=== PATIENT | male | born 1970 | race Caucasian/White ===

== ENCOUNTER → 2016-07-28 | Outpatient (CLI) | payer OTHER, BC ==
[2016-07-28 12:40] LABS: Basophils % (A) 0 %; CH 25.3; CHCM 31.1; Eosinophils # (A) 0.1 k/uL (0-0.7); Eosinophils % (A) 1 %; HCT 37.2 % (39.0-53.0); HDW 2.73; HGB 11.6 gm/dL (13.0-17.5); Hypochromasia Slight; Luc % (Auto) 2; Lymphocytes # (A) 1.7 k/uL (1.0-4.8); Lymphocytes % (A) 13 %; MCH 25.4 pg (25.0-35.0); MCHC 31.1 g/dL (31.0-37.0); MCV 81.6 fL (80.0-100.0); Mean Platelet Volume 6.5; Monocytes % (A) 8 %; Neutrophils # (A) 9.3 k/uL (1.3-7.7); Neutrophils % (A) 75 %; RBC 4.56 m/uL (4.30-5.90); RDW 13.2 % (11.5-15.5); WBC 12.4 k/uL (3.8-10.6); WBC (Perox) 13.36
[2016-07-28 13:08] LABS: ALT 42 U/L (21-72); AST 20 U/L (17-59); Alkaline Phosphatase 113 U/L (38-126); Anion Gap 14 mmol/L; Blood Urea Nitrogen 12 mg/dL (9-20); Calcium 9.7 mg/dL (8.4-10.2); Carbon Dioxide 26 mmol/L (22-30); Chloride 104 mmol/L (98-107); Glucose 118 mg/dL (74-99); LDH 413 U/L (313-618); Non-African American GFR(MDRD) >60 (>60 ml/min/1.73 sqM); Potassium 5.3 mmol/L (3.5-5.1); Sodium 144 mmol/L (137-145); Total Bilirubin 0.4 mg/dL (0.2-1.3); Total Protein 7.2 g/dL (6.3-8.2)
[2016-07-28 13:39] LABS: Prostate Specific Antigen 1.37 ng/mL (0.00-4.00)
[2016-07-30 20:12] LABS: Manual Review Performed; Nucleated Red Blood Cells 0 /100 WBC (0-0); Total Cells Counted 100
[2016-07-30 20:13] LABS: RBC Morphology Normal
== END | disposition home or self-care (01) ==
LOC: LABWHC1 11:42
PROVIDERS: ATTEND Family Medicine
DX: R59.0 Localized enlarged lymph nodes (principal)
CPT/HCPCS: 36415; 71020; 80053; 83615; 84153; 84402; 84403; 84443; 85025

== ENCOUNTER → 2016-07-28 | Outpatient (CLI) | payer BC, OTHER ==
--- NOTE | 2016-07-28 13:19 | XR ---
EXAMINATION TYPE: XR chest 2V DATE OF EXAM: 07/28/2016 1:05 PM COMPARISON: NONE HISTORY: Supraclavicular adenopathy TECHNIQUE: Frontal and lateral views of the chest are obtained. FINDINGS: There is no focal air space opacity, pleural effusion, or pneumothorax seen. Prominence i n the right hilum may reflect underlying adenopathy. There is also prominence of the paratracheal str ipe which may reflect additional adenopathy. The cardiac silhouette size is within normal limits. T he osseous structures are intact. IMPRESSION: Suspect mediastinal and hilar adenopathy. CT of the chest is advised.
== END | disposition home or self-care (01) ==
LOC: RADXRMAIN 12:50
PROVIDERS: ATTEND Family Medicine
DX: R59.0 Localized enlarged lymph nodes (principal)
CPT/HCPCS: 71020

== ENCOUNTER → 2016-07-30 | Outpatient (CLI) | payer OTHER, BC ==
--- NOTE | 2016-07-30 09:38 | CT ---
EXAMINATION TYPE: CT soft tissue neck w con DATE OF EXAM: 07/30/2016 9:18 AM HISTORY: Localized swelling, mass or lump in left side of neck COMPARISON: NONE CT DLP: 474.80 mGycm. Automated Exposure Control for Dose Reduction was Utilized. TECHNIQUE: CT scan of the neck is performed with IV Contrast, patient injected with 100 ml mL of Omn ipaque 300, axial images are obtained, coronal and sagittal reformatted images are reviewed. FINDINGS: A vitamin E marker is placed at level of palpable abnormality left neck inferior hyoid leve l on axial image 39. There is prominent left-sided neck adenopathy present at as well as above and be low this level. Prominent but subcentimeter lymph nodes are seen in the posterior cervical triangle a nd bilateral carotid spaces as well as submandibular levels. There is abnormal adenopathy at hyoid dillan ne level lateral to SCM, largest lymph node measures 1.1 x 1.0 cm on axial image 42. Just below this at level of vocal cords laterally there is abnormal lymph node measuring 1.5 x 1.1 cm on axial image 38. There are additional abnormal lymph nodes extending to the supraclavicular region with largest at level of thyroid gland measuring approximately 1.7 x 1.3 cm chest anterior and superior to the subcl marilia vessels and lateral to the jugular vein and common carotid artery on axial image 22. Mild surro unding fat stranding is present at this level. There is abnormal lymph node anterior superior mediast inum measuring 1.4 x 1.8 cm adjacent to the proximal trachea on axial image 12. Airway: No gross abnormality seen. Parotid/submandibular glands: No gross abnormality seen. Carotid/Vascular Structures: Mild plaque at left carotid bulb is present. Osseous Structures: There is loss of normal cervical curvature. There is suspicious sclerosis involvi ng the T2 vertebra fairly diffusely. Additional sclerotic focus involving the C3 spinous process exte nding into the right C3 lamina. Other: Mild mucosal thickening anteriorly left inferior maxillary sinus is present. IMPRESSION: Abnormal adenopathy in the left neck involving zones 2 through 4 with mild soft tissue sw elling and fat stranding, there is abnormal right sided anterior superior mediastinal lymph node bord brayden zone 6/7 also present. Differential includes infectious or inflammatory etiologies versus neop lasm. The presence of a zone 6/7 lymph node with some suspicious sclerotic bone lesions particularly at T2 vertebral body level makes neoplasm favored. Consider further investigation with PET/CT and pos sibly whole body bone scan. Oncology follow-up advised.
== END | disposition home or self-care (01) ==
LOC: RADCTMAIN 08:42
PROVIDERS: ATTEND Family Medicine
DX: R59.0 Localized enlarged lymph nodes (principal)
CPT/HCPCS: 70491; Q9967

== ENCOUNTER → 2016-08-13 | Outpatient (CLI) | payer OTHER, BC ==
--- NOTE | 2016-08-13 09:16 | CT ---
EXAMINATION TYPE: CT ChestAbdPelvis w con DATE OF EXAM: 08/13/2016 8:36 AM COMPARISON: NONE HISTORY: Patient complains of swollen neck lymph nodes and abnormal Neck CT. CT DLP: 2054 mGycm CONTRAST: CT scan of the chest, abdomen and pelvis is performed with Oral Contrast and with IV Contrast, patien t injected with 100 mL of Omnipaque 300. CT Chest: LUNGS: Irregular elongated nodule right middle lobe lateral segment measuring 2.1 x 1.3 cm. No additi onal nodules or masses identified. The lungs are otherwise clear. No pleural effusion or CT evidence of interstitial lung disease. MEDIASTINUM: Anterior mediastinal mass to the right of midline measuring 5.9 x 5.0 cm may reflect co nglomerate adenopathy although thymic tumors not excluded. AP window adenopathy measuring up to 1.3 c m in left paratracheal adenopathy measuring up to 1.2 cm. Small subcentimeter lymph nodes seen within the prevascular space as well as the low right paratracheal region. High right paratracheal lymph no de measuring 1.6 cm. Thoracic aorta is of normal caliber. The heart is not enlarged. HILAR STRUCTURES: No evidence for mass. No adenopathy greater than 1 cm. OTHER: Supraclavicular adenopathy identified on the left measuring up to 1.1 cm. Normal-appearing axi llary lymph nodes. CONTRAST CT ABDOMEN AND PELVIS FINDINGS: LIVER/GB: Tiny gallstone noted. One or 2 tiny cysts are subcentimeter in size within the liver. Bilia ry tree is of normal caliber. PANCREAS: No inflammation. No distinct mass. SPLEEN: No splenic enlargement. No lesion seen. ADRENALS: No nodule. No thickening. KIDNEYS/BLADDER: No hydronephrosis. No nephrolithiasis. Simple cyst lower pole left kidney measurin g 1.5 cm. BOWEL: Normal appendix. Normal bowel caliber. No inflammation. GENITAL ORGANS: No gross abnormality. LYMPH NODES: Right common iliac adenopathy measuring 1.4 cm. Right external iliac chain adenopathy me asuring 1.2 cm as well as 1.7 cm. Right inguinal adenopathy measuring 1.2 cm. Additional right inguin al lymph node measuring 1.3 cm. No left inguinal adenopathy appreciated at this time. AORTA: No signi ficant abnormality. OSSEOUS STRUCTURES: Sclerosis of the T2 segment noted. There is also vague sclerosis of the inferior pubic ramus on the right. L5 bilateral spondylolysis. OTHER: No significant additional abnormality is seen. IMPRESSION: 1. Anterior mediastinal mass may reflect conglomerate adenopathy although mass of thymic origin is no t excluded. Additional mediastinal and left supraclavicular as well as iliac chain and inguinal adeno domonique as discussed. 2. Elongate nodule within the lateral segment of the right middle lobe may reflect primary malignancy versus solitary metastatic lesion. 3. Bony metastatic lesion suspected at T2 as well as inferior right pubic ramus.
== END | disposition home or self-care (01) ==
LOC: RADCTMAIN 06:33
PROVIDERS: ATTEND Internal Medicine Hematology & Oncology
DX: J98.59 Other diseases of mediastinum, not elsewhere classified (principal); R91.1 Solitary pulmonary nodule
CPT/HCPCS: 71260; 74177; Q9967

== ENCOUNTER → 2016-09-06 | Outpatient (CLI) | payer OTHER, BC | END | disposition home or self-care (01) | LOC: CPPFTMAIN 13:23 | PROVIDERS: ATTEND Internal Medicine Hematology & Oncology | DX: Z01.818 Encounter for other preprocedural examination (principal); C81.90 Hodgkin lymphoma, unspecified, unspecified site | CPT/HCPCS: 94060; 94726; 94729 ==

== ENCOUNTER → 2016-12-01 | Outpatient (CLI) | payer OTHER, BC ==
--- NOTE | 2016-12-01 13:00 | PE ---
EXAMINATION TYPE: PET CT fusion whole body DATE OF EXAM: 12/01/2016 CLINICAL HISTORY: Hodgkin lymphoma progress study. Initial location left neck completed chemotherapy November 2016. TECHNIQUE: Following the intravenous administration of 14.059 mCi of F-18 FDG, whole body images ar e performed from the skull base to the midthigh. Images are reviewed on the computer in the coronal, axial, and sagittal planes. Reconstructed rotating images are created on independent workstation an d reviewed on the computer. A non-contrast CT is performed in conjunction with the PET scan. COMPARISON: CT neck July 30, 2016. CT cap August 13, 2016. FINDINGS: SKULL BASE AND NECK: No suspicious hypermetabolic uptake is seen in the neck on current study. Scat tered subcentimeter lymph nodes are present. No suspicious greater than 1 cm neck adenopathy persists after treatment. There is marked interval improvement in left-sided supraclavicular adenopathy which is now subcentimeter in size. CHEST, MEDIASTINUM, AND HILAR REGION: No suspicious hypermetabolic uptake is seen in the thorax. Barry ed interval improvement in superior mediastinal adenopathy is seen. For reference high right paratrac heal lymph node measures 10 x 5 mm on current study versus 18 x 16 mm on prior study. Lobulated anter ior mediastinal mass measures 4.5 x 2.1 cm on current study axial image 116 versus 5.9 x 4.3 cm on pr ior study axial image 31. ABDOMEN AND PELVIS: No suspicious hypermetabolic uptake is seen in the abdomen or pelvis. Normal excr etion is present. OSSEOUS STRUCTURES: No suspicious hypermetabolic uptake is seen in osseous structures. There is stabl e sclerosis T2 vertebra. There is stable more mild sclerosis right ischial tuberosity. OTHER CT: Nasal septum is deviated to right of midline. There is right internal jugular Mediport catheter with tip in SVC. There are small degree of bilateral gynecomastia. Prostate gland is prominent in size with central zone calcifications, underlying BPH is suspected, cl inical correlation advised. IMPRESSION: Marked interval improvement in neck and thoracic adenopathy without abnormal hypermetabol ic uptake currently. All lymph nodes and masses diminished in size. Stable nonspecific sclerosis T2 l esions without abnormal hypermetabolic uptake. EORTC response criteria: Complete Metabolic Response. MaxSUV < 2.5 or equivalent to background
== END | disposition home or self-care (01) ==
LOC: RADPETMAIN 08:12
PROVIDERS: ATTEND Internal Medicine Hematology & Oncology
DX: C81.90 Hodgkin lymphoma, unspecified, unspecified site (principal); R59.0 Localized enlarged lymph nodes; M89.8X8 Other specified disorders of bone, other site
CPT/HCPCS: 78816; A9552

== ENCOUNTER → 2017-01-17 | Outpatient (CLI) | payer OTHER, BC ==
[2017-01-17 14:30] LABS: Blood Urea Nitrogen 12 mg/dL (9-20); Non-African American GFR(MDRD) >60 (>60 ml/min/1.73 sqM)
--- NOTE | 2017-01-17 14:56 | US ---
EXAMINATION TYPE: US venous doppler duplex LE DATE OF EXAM: 01/17/2017 2:36 PM COMPARISON: NONE CLINICAL HISTORY: M79.662 pain left lower limb R22.41 swelling rl limb. Bilateral feet swelling x 1 w [place] SIDE PERFORMED: Bilateral TECHNIQUE: The lower extremity deep venous system is examined utilizing real time linear array sonog saran with graded compression, doppler sonography and color-flow sonography. VESSELS IMAGED: External Iliac Vein (EIV) Common Femoral Vein Deep Femoral Vein Greater Saphenous Vein * Femoral Vein Popliteal Vein Small Saphenous Vein * Proximal Calf Veins (* superficial vessels) Grayscale, color doppler, spectral doppler imaging performed of the deep veins of the lower extremit ies. There is normal flow, compressibility, vascular waveforms bilaterally. Right Leg: Appears negative for DVT Left Leg: Appears negative for DVT IMPRESSION: Negative
--- NOTE | 2017-01-17 15:09 | CT ---
EXAMINATION TYPE: CT angio chest DATE OF EXAM: 01/17/2017 COMPARISON: 08/13/2016 HISTORY: SOB. Tachycardia CT DLP: 369.10 mGycm CONTRAST: CT chest with contrast and 3D reconstruction with MIP imaging is performed with IV Contrast, patient injected with 100 ml mL of Omnipaque 350. Contrast-enhanced CT of the chest was performed through the course of the pulmonary arteries with greg g and mediastinal window settings submitted. 3D reconstruction with MIP imaging was also performed. PULMONARY ARTERIES: The pulmonary arteries and their major tributaries are patent. I do not see marcos dence for sizable filling defect to suggest pulmonary embolic process. LUNGS: The lungs are clear and free of infiltrate. No evidence for atelectasis. No pulmonary nodule or mass is detected. No pleural effusion. MEDIASTINUM: Thoracic aorta is of normal caliber . The heart is not enlarged. Marked diminution in s ize in anterior mediastinal mass which currently measures 2.8 x 2.2 cm versus 5.9 x 5.0 cm. Resolutio n of paratracheal, subcarinal and AP window adenopathy. No mediastinal lymph nodes greater than 1cm. HILAR STRUCTURES: No evidence for mass. No hilar lymph nodes greater than 1 cm. UPPER ABDOMEN: No significant abnormality is seen. IMPRESSION: 1. No evidence for Pulmonary embolism at this time. 2. Markedly improved mediastinal adenopathy.
== END | disposition home or self-care (01) ==
LOC: RADCTMAIN 13:44
PROVIDERS: ATTEND Internal Medicine Hematology & Oncology
DX: R22.41 Localized swelling, mass and lump, right lower limb (principal); M79.662 Pain in left lower leg; R59.0 Localized enlarged lymph nodes; R06.02 Shortness of breath; R00.0 Tachycardia, unspecified
CPT/HCPCS: 82565; 84520; 93970; 71275; 36415; Q9967; J1642

== ENCOUNTER → 2017-03-01 | Outpatient (CLI) | payer OTHER, BC ==
[2017-03-01 12:46] LABS: Blood Urea Nitrogen 11 mg/dL (9-20); Non-African American GFR(MDRD) >60 (>60 ml/min/1.73 sqM)
--- NOTE | 2017-03-01 13:53 | CT ---
EXAMINATION TYPE: CT ChestAbdPelvis w con DATE OF EXAM: 03/01/2017 COMPARISON: 08/13/2016 HISTORY: Lymphoma CT DLP: 1473.3 mGycm CONTRAST: CT scan of the chest, abdomen and pelvis is performed with Oral Contrast and with IV Contrast, patien t injected with 100 mL of Omnipaque 300. CT Chest: LUNGS: The lungs are clear and free of infiltrate or atelectasis. No pulmonary nodule or mass is det ected. No pleural effusion or CT evidence of interstitial lung disease. MEDIASTINUM: Anterior mediastinal mass to the right of midline is significantly smaller measures 2.6 x 1.6 cm versus 5.9 x 5.0 cm. AP window, left paratracheal and as ago esophageal adenopathy have reso lved. Smaller lymph nodes are seen all measuring less than 6 mm. HILAR STRUCTURES: No evidence for mass. No hilar adenopathy is appreciated. OTHER: No significant abnormality. CONTRAST CT ABDOMEN AND PELVIS FINDINGS: LIVER/GB: Tiny gallstone commented on previously is not well identified at this time. Tiny subcentime ter hepatic cysts totaling 2 in number are stable. Biliary tree is of normal caliber. PANCREAS: No inflammation. No distinct mass. SPLEEN: No splenic enlargement. No lesion seen. ADRENALS: No nodule. No thickening. KIDNEYS/BLADDER: No hydronephrosis. No nephrolithiasis. Stable left renal cysts. BOWEL: Normal appendix. Normal bowel caliber. No inflammation. GENITAL ORGANS: No gross abnormality. LYMPH NODES: Iliac chain adenopathy has essentially resolved bilaterally. No lymph nodes greater than 1 cm visualized. Resolution of right inguinal adenopathy. AORTA: No significant abnormality. OSSEOUS STRUCTURES: No significant abnormality is seen. OTHER: No significant additional abnormality is seen. IMPRESSION: 1. Dramatic improvement in mediastinal adenopathy with dominant anterior mediastinal mass being signi ficantly smaller in size and near complete resolution of previously noted mediastinal lymph nodes. 2. Resolution of previously noted enlarged iliac chain and right inguinal lymph nodes as noted.
== END | disposition home or self-care (01) ==
LOC: RADPROMAIN 11:33
PROVIDERS: ATTEND Internal Medicine Hematology & Oncology
DX: C81.98 Hodgkin lymphoma, unspecified, lymph nodes of multiple sites (principal); R59.0 Localized enlarged lymph nodes
CPT/HCPCS: 82565; 84520; 71260; 74177; Q9967; J1642

== ENCOUNTER → 2017-09-02 | Outpatient (CLI) | payer OTHER, BC ==
--- NOTE | 2017-09-02 13:40 | CT ---
EXAMINATION TYPE: CT ChestAbdPelvis w con DATE OF EXAM: 09/02/2017 COMPARISON: 06/05/2017 and 03/01/2017 HISTORY: 47-year-old male follow-up up on lymphoma TECHNIQUE: Contiguous axial scanning of the chest, abdomen, and pelvis performed with IV Contrast, pa tient injected with 100 mL of Omnipaque 300. Delayed images through the kidneys were obtained. Mendoza l/sagittal reconstructions performed. CT DLP: 1234.8 mGycm Automated exposure control for dose reduction was used. FINDINGS: Chest: Right anterior chest wall injection port with catheter tip at the lower SVC. Heart is normal size without pericardial effusion. Aorta normal caliber with conventional arch vessel branching anatomy. Mild bilateral gynecomastia. Redemonstrated nodular soft tissue along the right anterior mediastinum. This measures 2.1 x 1.3 cm v ersus 2.6 x 1.5 cm on 06/05/2017 and 3.1 x 1.7 cm on 03/01/2017. Otherwise, no thoracic lymphadenopathy. No consolidation or pleural effusion. Stable minimal pleural parenchymal thickening along the right h emidiaphragm. ABDOMEN: Small hiatal hernia. Two tiny subcentimeter hypodensities right liver lobe axial image 69 and 76 were present previously. Gallbladder, adrenal glands, right kidney, spleen, and pancreas show no gross abnormality. A couple left-sided renal cysts are redemonstrated measuring up to 2.1 cm. Symmetric uptake and excre tion of contrast from the kidneys. No dilated small bowel, free fluid, or free air. Numerous scattered nonenlarged mesenteric lymph node s are unchanged. Small fatty umbilical hernia. Normal appendix. Oral contrast progressed to the lower descending colon. Occasional sigmoid diverticu losis. No pericolonic inflammatory change. Pelvis: Bladder is urine distended. Prostate gland is prominent measuring 5.0 cm wide with some central calci fications. No abnormal fluid collection in the pelvis or pelvic lymphadenopathy seen. Bones: Bilateral L5 pars defects. Stable patchy sclerosis T2 vertebral body. No osseous destructive process. IMPRESSION: 1. THE SOFT TISSUE THICKENING ALONG THE RIGHT ANTERIOR MEDIASTINUM SHOWS SLIGHT PROGRESSIVE DECREASE IN SIZE (NOW 2.1 X 1.3 CM VERSUS 2.6 X 1.5 CM, PREVIOUSLY). 2. MINIMAL RESIDUAL PLEURAL PARENCHYMAL THICKENING ALONG THE RIGHT HEMIDIAPHRAGM IS UNCHANGED. 3. STABLE nonspecific PATCHY SCLEROSIS T2 VERTEBRAL BODY. 4. NO NEW OR PROGRESSIVE LYMPHADENOPATHY TO SUGGEST RECURRENT DISEASE. 5. SIGMOID DIVERTICULOSIS AND BILATERAL L5 PARS DEFECTS.
== END | disposition home or self-care (01) ==
LOC: RADCTMAIN 10:45
PROVIDERS: ATTEND Internal Medicine Hematology & Oncology
DX: C81.98 Hodgkin lymphoma, unspecified, lymph nodes of multiple sites (principal); K57.30 Diverticulosis of large intestine without perforation or abscess without bleeding; J92.9 Pleural plaque without asbestos; J98.59 Other diseases of mediastinum, not elsewhere classified
CPT/HCPCS: 71260; 74177; Q9967

== ENCOUNTER → 2017-12-02 | Outpatient (CLI) | payer OTHER, BC ==
--- NOTE | 2017-12-02 15:20 | CT ---
EXAMINATION TYPE: CT ChestAbdPelvis w con DATE OF EXAM: 12/02/2017 COMPARISON: Prior CT chest abdomen and pelvis September 02, 2017 and older studies. Prior PET/CT December 01, 2016. HISTORY: Hodgkin's lymphoma progress study originally diagnosed 2017 CT DLP: 1384.4 mGycm. Automated Exposure Control for Dose Reduction was Utilized. CONTRAST: CT scan of the thorax, abdomen and pelvis is performed with oral and with IV Contrast, patient inject ed with 100 mL of Isovue 300. FINDINGS: LUNGS: A 2 mm nodule left lung base axial image 46 is stable. No new suspicious nodules or masses are present. There is new or more prominent bibasilar linear scarring and/or atelectasis. No pleural eff usion or pneumothorax is noted. MEDIASTINUM: There are no new greater than 1 cm hilar or mediastinal lymph nodes. Residual soft tissu e anterior superior mediastinum anterior to ascending aorta measuring 1.7 x 0.8 cm is not enlarged fr om most recent CT No pericardial effusion is seen. OTHER: There is stable right internal jugular Mediport catheter. Bilateral gynecomastia is again seen . LIVER/GB: A few scattered subcentimeter low dense lesions throughout liver are too small to further c haracterize but presumed benign and stable. PANCREAS: No significant abnormality is seen. SPLEEN: No significant abnormality is seen. ADRENALS: No significant abnormality is seen. KIDNEYS: There is simple appearing 2.0 cm cyst laterally left kidney axial image 41. Just superior to this there is stable subcentimeter lesion axial image 38 that is too small to further characterize b ut presumed benign. BOWEL: Normal-appearing appendix is seen from cecum. Oral contrast does not reach colonic level. Ther e is no suspicious small or large bowel dilatation. A few tics in the sigmoid colon are redemonstrate d. GENITAL ORGANS: Central zone calcifications are seen in prostate gland which is upper limits of belle l in size. LYMPH NODES: No greater than 1cm abdominal or pelvic lymph nodes are appreciated. There are stable pr ominent but subcentimeter right groin lymph nodes axial image 125 extending inferiorly through image 139. OSSEOUS STRUCTURES: Mild facet arthropathy lower lumbar spine is seen. Spine is straightened on sagit scar images. Stable bilateral pars defects L5 level without spondylolisthesis. Stable nonspecific patc hy sclerosis T2 vertebral body. OTHER: No significant additional abnormality is seen. IMPRESSION: No new mass or adenopathy is seen to suggest active lymphoma or neoplastic recurrence.
== END | disposition home or self-care (01) ==
LOC: RADPROMAIN 12:42
PROVIDERS: ATTEND Internal Medicine Hematology & Oncology
DX: C81.98 Hodgkin lymphoma, unspecified, lymph nodes of multiple sites (principal)
CPT/HCPCS: 71260; 74177; J1642; Q9967

== ENCOUNTER → 2018-03-11 | Outpatient (CLI) | payer OTHER, BC ==
--- NOTE | 2018-03-11 23:42 | CT ---
EXAMINATION TYPE: CT ChestAbdPelvis w con DATE OF EXAM: 03/11/2018 COMPARISON: 12/02/2017 and 09/02/2017 HISTORY: 47-year-old male Follow up to Hodgkin's lymphoma TECHNIQUE: Contiguous axial scanning of the chest, abdomen, and pelvis performed with IV Contrast, pa tient injected with 100 mL of Isovue 300. Delayed images through the kidneys were obtained. Coronal/s agittal reconstructions performed. CT DLP: 1604.8 mGycm Automated exposure control for dose reduction was used. FINDINGS: CHEST: Right anterior chest wall injection port with catheter tip at the lower SVC. Heart is normal size without pericardial effusion. Aorta normal caliber with conventional arch vessel branching anatomy. Mild bilateral gynecomastia. Redemonstrated nodular soft tissue thickening along the right anterior mediastinum. This measures 1.8 x 1.2 cm versus 1.7 x 1.1 cm on 12/02/2017 and 2.1 x 1.3 cm on 09/02/2017, 2.6 x 1.5 cm on 06/05/2017, and 3.1 x 1.7 cm on 03/01/2017. Otherwise, no thoracic lymphadenopathy. No consolidation or pleural effusion. Stable minimal pleural parenchymal scarring along the right hem idiaphragm. ABDOMEN: Small hiatal hernia. Liver upper limits of normal in size at 17.1 cm. Subcentimeter hypodensity right hepatic lobe axial i mage 70 is unchanged. Gallbladder, adrenal glands, right kidney, spleen, and pancreas show no gross abnormality. A couple left-sided renal cysts are redemonstrated measuring up to 2.1 cm. Symmetric uptake and excre tion of contrast from the kidneys. No dilated small bowel, free fluid, or free air. Scattered nonenlarged mesenteric lymph nodes are unchanged. Small fatty umbilical hernia. Normal appendix. Oral contrast progressed to the mid transverse colon. Occasional sigmoid diverticulo sis. No pericolonic inflammatory change. Pelvis: Prominent urinary bladder distention measuring up to 14.2 cm. Prostate gland is enlarged measuring 5. 4 cm, increased from 5.0 cm on 09/02/2017. No abnormal fluid collection in the pelvis or pelvic lympha denopathy seen. Bones: Bilateral L5 pars defects. Stable patchy sclerosis T2 vertebral body. No osseous destructive process. IMPRESSION: 1. STABLE NODULAR SOFT TISSUE THICKENING ALONG THE RIGHT ANTERIOR MEDIASTINUM COMPARED TO THE MOST RECENT PRIOR. 2. NO NEW LYMPHADENOPATHY TO SUGGEST DISEASE RECURRENCE. 3. PROSTATOMEGALY (5.4 CM WIDE) SHOWS SLIGHT INCREASE FROM 09/02/2017. PROMINENT URINARY BLADDER DISTE NTION . CORRELATE FOR ANY SYMPTOMS OF BPH. 4. SIGMOID DIVERTICULOSIS AND BILATERAL L5 PARS DEFECTS.
== END ==
LOC: RADPROMAIN 12:46
PROVIDERS: ATTEND Internal Medicine Hematology & Oncology
DX: J98.59 Other diseases of mediastinum, not elsewhere classified (principal); R91.8 Other nonspecific abnormal finding of lung field; N40.0 Benign prostatic hyperplasia without lower urinary tract symptoms; N32.89 Other specified disorders of bladder; K57.30 Diverticulosis of large intestine without perforation or abscess without bleeding
CPT/HCPCS: 71260; 74177; Q9967

== ENCOUNTER → 2018-07-14 | Outpatient (CLI) | payer OTHER, BC ==
--- NOTE | 2018-07-14 21:33 | CT ---
EXAMINATION TYPE: CT ChestAbdPelvis w con DATE OF EXAM: 07/14/2018 COMPARISON: 03/11/2018 HISTORY: Hodgkin's disease follow up. CT DLP: 1704.1 mGycm Automated exposure control for dose reduction was used. CONTRAST: CT scan of the chest, abdomen and pelvis is performed with Oral Contrast and with IV Contrast, patien t injected with 100ml mL of Isovue 300. FINDINGS: LUNGS: Vague groundglass changes in the right middle lobe are nonspecific may been the basis of atele ctasis. Linear density at the right lung base most typical scar. MEDIASTINUM: Redemonstrated nodular soft tissue thickening along the right anterior mediastinum. This measures 1.8 x 1.2 cm and stable from the previous exam. It measured 1.7 x 1.1 cm on 12/02/2017 and 2 .1 x 1.3 cm on 09/02/2017, 2.6 x 1.5 cm on 06/05/2017, and 3.1 x 1.7 cm on 2016. Otherwise, no th oracic lymphadenopathy. OTHER: Mediport catheter noted.. Small hiatal hernia noted. LIVER/GB: Liver at the upper limits of normal in size measuring 17.2 cm. Subcentimeter hypodensity ri ght hepatic lobe is stable. PANCREAS: No significant abnormality is seen. SPLEEN: No significant abnormality is seen. ADRENALS: No significant abnormality is seen. KIDNEYS: No hydronephrosis or nephrolithiasis. Left-sided renal cysts are stable. BOWEL: Bowel gas pattern nonspecific. Changes of diverticulosis. REPRODUCTIVE ORGANS: No gross abnormality seen. LYMPH NODES: No greater than 1 cm abdominal or pelvic lymph nodes are appreciated. OSSEOUS STRUCTURES: Bilateral pars defect L5. Stable patchy sclerosis T2 vertebral body. OTHER: Fat-containing periumbilical hernia. Prostate gland is enlarged. IMPRESSION: 1. Stable soft tissue nodular thickening along the anterior mediastinum unchanged relative to the paul or exams. 2. No new evidence of lymphadenopathy. 3. Prostate hypertrophy.
== END ==
LOC: RADCTMAIN 14:46
PROVIDERS: ATTEND Internal Medicine Hematology & Oncology
DX: C81.98 Hodgkin lymphoma, unspecified, lymph nodes of multiple sites (principal); N40.0 Benign prostatic hyperplasia without lower urinary tract symptoms; R91.8 Other nonspecific abnormal finding of lung field
CPT/HCPCS: 71260; 74177; Q9967

== ENCOUNTER → 2018-11-11 | Outpatient (CLI) | payer OTHER, BC ==
--- NOTE | 2018-11-11 15:12 | CT ---
EXAMINATION TYPE: CT ChestAbdPelvis w con DATE OF EXAM: 11/11/2018 COMPARISON: 07/14/2018 HISTORY: Follow up Hodgkins disease. CT DLP: 1646.6 mGycm Automated exposure control for dose reduction was used. CONTRAST: CT scan of the chest, abdomen and pelvis is performed with Oral Contrast and with IV Contrast, patien t injected with 100 mL of Isovue M300. FINDINGS: LUNGS: The lungs are grossly clear, there is no concerning parenchymal mass or nodule identified. T here is no pleural effusion or pneumothorax seen. The tracheobronchial tree is patent. MEDIASTINUM: Redemonstrated nodular soft tissue thickening along the right anterior mediastinum. This measures 1.8 x 1.2 cm and stable from the previous exam. OTHER: Partial eventration of the right hemidiaphragm. Mediport catheter noted. LIVER/GB: Liver at the upper limits of normal in size measuring 17.2 cm. Subcentimeter hypodensity ri ght hepatic lobe is stable PANCREAS: No significant abnormality is seen. SPLEEN: No significant abnormality is seen. ADRENALS: No significant abnormality is seen. KIDNEYS: No hydronephrosis or nephrolithiasis. Left-sided renal lesions are stable. Do not meet the c riteria of a simple cyst measuring approximately 25 Hounsfield units. The largest measures 1.2 cm. Re trospectively stable dating back to 2017. BOWEL: No significant abnormality is seen. LYMPH NODES: No greater than 1 cm abdominal or pelvic lymph nodes are appreciated. OSSEOUS STRUCTURES: Bilateral pars defect L5. Patchy sclerosis T2 vertebral body is stable. Hypertrop hic changes the vertebral column. OTHER: Prostate is enlarged. Fat-containing periumbilical hernia. IMPRESSION: 1. Stable prevascular space soft tissue adenopathy unchanged from the prior exam. 2. No new evidence of lymphadenopathy. 3. Stable indeterminate left renal lesions unchanged from the prior exam could be correlated with ult rasound given their Hounsfield unit measurement of 25.
== END ==
LOC: RADPROMAIN 12:52
PROVIDERS: ATTEND Internal Medicine Hematology & Oncology
DX: R59.0 Localized enlarged lymph nodes (principal); C81.98 Hodgkin lymphoma, unspecified, lymph nodes of multiple sites
CPT/HCPCS: 71260; 74177; Q9967 ×2

== ENCOUNTER → 2019-03-16 | Outpatient (CLI) | payer OTHER, BC ==
--- NOTE | 2019-03-17 05:31 | CT ---
EXAMINATION TYPE: CT ChestAbdPelvis w con DATE OF EXAM: 03/16/2019 COMPARISON: 11/11/2018 and 07/14/2018 HISTORY: 48-year-old male Hodgkin's lymphoma follow up. TECHNIQUE: Contiguous axial scanning of the chest, abdomen, and pelvis performed with IV Contrast, pa tient injected with 100ml mL of Isovue 300. Delayed images through the kidneys were obtained. Coronal /sagittal reconstructions performed. CT DLP: 1703.8 mGycm Automated exposure control for dose reduction was used. FINDINGS: CHEST: Right anterior chest wall injection port with catheter tip at the lower SVC. Heart normal size without pericardial effusion. Cardiac motion obscuring the true size of the aortic root. Remainder of the aorta is normal caliber w ith conventional arch vessel branching anatomy. Focal nodular thickening along the right anterior mediastinum, axial image 31, is unchanged. No other thoracic lymphadenopathy by CT size criteria. Mild bilateral gynecomastia. Stable focal subpleural density along the right hemidiaphragm and right cardiophrenic angle likely so me mild pleural parenchymal scarring. No consolidation or pleural effusion. ABDOMEN: Tiny hiatal hernia. Stable vague 9 mm hypodensity peripheral inferior right liver lobe too small for accurate CT characte rization. Liver mildly enlarged at 18.0 cm. Portal venous system is patent. No biliary ductal dilatat ion. Gallbladder, adrenal glands, right kidney, spleen, and pancreas appear within normal limits. A couple stable cortical cysts within the left kidney measuring up to 1.8 cm. No dilated small bowel, free fluid, or free air. Prominent left mesenteric lymph node at 7 mm (axial image 82), not clearly seen on 07/14/2018 but stab le from 11/11/2018. Otherwise, all of the 5 mm and smaller scattered mesenteric lymph nodes appear sta ble. No retroperitoneal lymphadenopathy. Small fatty umbilical hernia. Normal appendix. Mild overall stone burden. Oral contrast progressed to the distal transverse colon. No pericolonic in flammatory change. Pelvis: Bladder is urine distended. Prostate gland is enlarged and 5.6 cm wide. No abnormal fluid collection in the pelvis. Inguinal lymph nodes are prominent but nonenlarged measuring up to 1.0 cm, unchanged. Bones: Some bony hyperostosis at the left ischial tuberosity is unchanged probably sequela of remote injury. Bilateral L5 pars defects with trace grade 1 anterolisthesis at L5-S1. No osseous destructive proces s. IMPRESSION: 1. STABLE FOCAL NODULAR THICKENING ALONG THE RIGHT ANTERIOR MEDIASTINUM BACK TO AT LEAST 07/14/2018. 2. SCATTERED NONENLARGED MESENTERIC LYMPH NODES. ONE BORDERLINE SIZED LYMPH NODE IN THE LEFT MESENTER Y MEASURES 7 MM, NOT CLEARLY SEEN ON 07/14/2018 BUT STABLE FROM 11/11/2018. NO NEW LYMPHADENOPATHY IS S EEN. 3. STABLE PROSTATOMEGALY (5.6 CM WIDE). 4. BILATERAL L5 PARS DEFECTS WITH TRACE GRADE 1 ANTEROLISTHESIS AT L5-S1.
== END | disposition home or self-care (01) ==
LOC: RADCTMAIN 15:51
PROVIDERS: ATTEND Internal Medicine Hematology & Oncology
DX: N40.0 Benign prostatic hyperplasia without lower urinary tract symptoms (principal); R91.8 Other nonspecific abnormal finding of lung field; C81.98 Hodgkin lymphoma, unspecified, lymph nodes of multiple sites
CPT/HCPCS: 71260; 74177; Q9967 ×2

== ENCOUNTER 2019-05-09 17:11 | Inpatient (IN) | payer OTHER, BC ==
[2019-05-09] MEDS ORDERED: LIDOCAINE 1% INJ 10MG/ML (20 ML MDV) ONE (17:18)
--- NOTE | 2019-05-09 17:23 | ED ---
General Adult HPI - General Stated complaint: stemi Time Seen by Provider: 05/09/19 17:11 Source: RN notes reviewed, old records reviewed - History of Present Illness Initial comments: This is a 48-year-old male with a past medical history significant for smoking and hypertension. Patient states she doesn't a family history because he is adopted. Patient states he was having chest pain about hour and half ago while he was watching TV and he went to [facility]. He was diagnosed with an acute inferior IN. Patient states with the pain he had radiation to his back and down both of his arms. Patient also was mildly short of breath per patient denied any diaphoretic episodes per patient denies any nausea vomiting. Dr. Kern did speak with me prior to the patient arriving and wanted the patient to go right to the [facility] if they were available. They were not available when the patient arrives I did see the patient. Patient has no recent history of fever chills per patient has no history of IN. Patient denies any lightheadedness or dizziness currently. Patient was given heparin and Plavix and Lopressor as well as aspirin at [facility]. - Related Data Allergies Allergy/AdvReac Type Severity Reaction Status Date / Time No Known Allergies Allergy Verified 03/11/18 14:00 Review of Systems ROS Statement: Those systems with pertinent positive or pertinent negative responses have been documented in the HPI. ROS Other: All systems not noted in ROS Statement are negative. General Exam - General Exam Comments Initial Comments: GENERAL: Patient is well-developed and well-nourished. Patient is nontoxic and well- hydrated and is in mild distress. ENT: Neck is soft and supple. No significant lymphadenopathy is noted. Oropharynx is clear. Moist mucous membranes. Neck has full range of motion without eliciting any pain. EYES: The sclera were anicteric and conjunctiva were pink and moist. Extraocular movements were intact and pupils were equal round and reactive to light. Eyelids were unremarkable. PULMONARY: Unlabored respirations. Good breath sounds bilaterally. No audible rales rhonchi or wheezing was noted. CARDIOVASCULAR: There is a regular rate and rhythm without any murmurs gallops or rubs. ABDOMEN: Soft and nontender with normal bowel sounds. SKIN: Skin is clear with no lesions or rashes and otherwise unremarkable. NEUROLOGIC: Patient is alert and oriented x3. Cranial nerves II through XII are grossly intact. Motor and sensory are also intact. Normal speech, volume and content. Symmetrical smile. MUSCULOSKELETAL: Normal extremities with adequate strength and full range of motion. No lower extremity swelling or edema. No calf tenderness. LYMPHATICS: No significant lymphadenopathy is noted PSYCHIATRIC: Normal psychiatric evaluation. Medical Decision Making - Medical Decision Making EKG shows normal sinus rhythm at 89 bpm IN interval 148 QRS is 92 QT interval 360 QTC is 438 per patient's EKG shows ST segment elevation in leads II, III, and F aVF. This is consistent with an acute IN. I reviewed the information that was sent over from [facility]. Patient was in the emergency department approximately 10 minutes prior to going upstairs to the [facility]. Disposition Clinical Impression: Acute inferior myocardial infarction Disposition: ADMITTED IP TO THIS HOSP Referrals: Ten Burgos MD [Primary Care Provider] - 1-2 days Time of Disposition: 17:22
[2019-05-09] MEDS ORDERED: ENALAPRILAT 1.25 MG/ML 1 ML VIAL ONE (17:35)
[2019-05-09] MEDS ORDERED: IV FLUID CONTINUATION 1,000 ML IV ONE ×2 (17:35)
[2019-05-09] MEDS ORDERED: MIDAZOLAM 2 MG/2 ML VIAL IV ONE (17:35)
[2019-05-09] MEDS ORDERED: ENALAPRILAT 1.25 MG/ML 1 ML VIAL IV ONE (17:35)
[2019-05-09] MEDS ORDERED: LIDOCAINE 1% INJ 10MG/ML (20 ML MDV) SQ ONE (17:38)
[2019-05-09] MEDS ORDERED: BIVALIRUDIN BOLUS 250 MG/50 ML IV ONE (17:50)
[2019-05-09] MEDS ORDERED: BIVALIRUDIN 250 MG in SODIUM CHLORIDE 0.9% 50 ML IV ONE (17:51)
[2019-05-09] MEDS: NITROGLYCERIN 1000MCG/10ML SYRINGE INTRACORON ONE ×4 (18:00→18:25)
[2019-05-09] MEDS ORDERED: IOPAMIDOL-370 125ML BTL INJ ONE (18:00)
--- NOTE | 2019-05-09 18:02 | P.CARDCATH ---
Date of Procedure: 05/09/19 Preoperative Diagnosis: Acute MS Postoperative Diagnosis: Critical lesion involving the LV branch of the RCA which seemed to be the culprit vessel. There is critical lesion involving the ostium of the PDA and also significant lesion involving the division of the OM branch Procedure(s) Performed: Left heart catheterization without left ventriculography Description of Procedure: HISTORY: This is a 48-year-old gentleman with history of lymphoma, hypertension and smoking who presented to the [facility] Emergency Room with Complaints of Chest Pain of One Hour Duration. EKG Showed Mild ST Elevation in Inferior Leads with ST Depression in Anterior Leads. Patient Is Advised to Have a Cardiac Catheterization for Definitive Diagnosis and Further Intervention As Needed. Patient and Family Were Explained the Risks and Benefits of the Procedure. CONSENT:I have discussed the risks, benefits and alternative therapies for the above-mentioned procedure and for both sedation/analgesia as well as necessary blood product administration, if indicated, as they pertain to this patient. The patient has indicated understanding and acceptance of the risks and procedures discussed. PROCEDURE: Patient was brought to the lab in a fasting state. Patient was given some IV sedation. The right groin is infiltrated with lidocaine and right femoral artery was entered using Seldinger technique. A 6-English catheter was left in place and selective coronary arteriography was performed. Patient tolerated the procedure well. Femoral angiogram was performed . No immediate complications were noted and patient went on to have stent placement of the PLV branch of RCA and possibly the division of the OM branch of circumflex by Dr. Sharif Conscious Sedation: Versed 2mg Fentanyl 25 g Duration 12minutes HEMODYNAMICS: The aortic pressure is about 150/100 SELECTIVE CORONARY ARTERIOGRAPHY: LEFT MAIN: This is normal length and free of any occlusive disease. THE LEFT ANTERIOR DESCENDING CORONARY ARTERY: This is a good caliber vessel giving rise to small septal and several diagonal branches which are small in caliber. The LAD has mild plaque and a BASS FISHER in the proximal and midportion. There is no critical stenosis in the LAD distribution THE LEFT CIRCUMFLEX AND IS CORONARY ARTERY:. This is a fair caliber vessel giving rise to good-sized first OM branch. The first OM branch has a division which has a long 90% stenosis. The rest of the circumflex is mild diffuse plaque without any significant focal lesions THE RIGHT CORONARY ARTERY:. This is a good caliber vessel and codominant in distribution. Gives rise to good-sized PLV and PDA branches. The PLV branch has a significant lesion in the 1 of the divisions but small in caliber. It appears to be a culprit vessel. The PDA has ostial about 70-80% stenosis LEFT VENTRICULOGRAPHY: Not performed FINAL IMPRESSION:. Critical lesion involving the branch of the PLV of the right coronary artery. There is also critical lesion involving the division of the first OM branch of the circumflex. The ostium of the PDA also has critical lesion PLAN: Stent placement of the PLV branch of the right coronary artery. Subsequent stent placement of the OM branch and possibly PDA to be considered PROGNOSIS: Fair with successful therapy
[2019-05-09] MEDS ORDERED: CLOPIDOGREL 75 MG TAB ONE (18:14)
[2019-05-09] MEDS ORDERED: CLOPIDOGREL 75 MG TAB PO ONE (18:16)
[2019-05-09] MEDS ORDERED: IOPAMIDOL-370 100ML BTL INJ ONE (18:27)
[2019-05-09] MEDS ORDERED: hydrALAZINE HCL 20 MG/ML 1 ML VIAL ONE (18:38)
[2019-05-09] MEDS ORDERED: hydrALAZINE HCL 20 MG/ML 1 ML VIAL IV ONE (18:40)
[2019-05-09] MEDS ORDERED: RX INFO: IV CONTRAST WAS GIVEN 1 EACH MISC MISCELLANE PRN (18:42)
[2019-05-09] MEDS ORDERED: MAG HYDROX/AL HYDROX/SIMETH 30 ML CUP PO PRN (18:42)
[2019-05-09] MEDS ORDERED: ATROPINE SULFATE 0.1 MG/ML 10ML SYRINGE IV PRN (18:42)
[2019-05-09] MEDS ORDERED: NITROGLYCERIN SL TABS 0.4 MG TAB SUBLINGUAL PRN (18:42)
[2019-05-09] MEDS ORDERED: ZOLPIDEM 5 MG TAB PO PRN (18:42)
[2019-05-09] MEDS ORDERED: hydrALAZINE HCL 20 MG/ML 1 ML VIAL IVP PRN (18:45)
[2019-05-09] MEDS ORDERED: SODIUM CHLORIDE 0.9% 1,000 ML IV SCH (18:45)
[2019-05-09 19:03] LABS: Glucose,Whole Blood 131 mg/dL (75-99)
--- NOTE | 2019-05-09 20:37 | PTCA ---
PERCUTANEOUSTRANS CORORONARY ANGIOGRAPHY DATE OF SERVICE: May 09, 2019 PERFORMING PHYSICIAN: Jesús Ortega MD, hotel valet attendant. PROCEDURE PERFORMED: 1. Successful stenting of the PDA branch of the RCA using 2.75 x 12 mm Xience ANJELICA with excellent angiographic results and reduction of stenosis from 99% to 0%. 2. Successful stenting of the first obtuse marginal branch of the left circumflex using 2.75 x 15 mm Xience ANJELICA with an excellent angiographic results and reduction of stenosis from 99% to 0%. INDICATIONS: This is a 48-year-old gentleman who presented initially to [facility] with chest discomfort concerning for acute inferior ST-elevation myocardial infarction. He underwent an emergent heart catheterization by Dr. Kern and that revealed critical disease involving the PDA branch of the RCA as well as OM1 of the left circumflex. Percutaneous coronary intervention was advised. APPROACH: Right common femoral artery. COMPLICATION: None. LEVEL OF SEDATION: Moderate with sedation length of 42 minutes. Door to door to balloon was 97 minutes. PROCEDURE DESCRIPTION: Please refer to diagnostic heart catheterization was performed by Dr. Kern. Anticoagulation was initiated using Angiomax. Subsequently I did engage the RCA using JR4 guide. I did wire the PDA branch using a long whisper J wire. After that, I did wire the PLV branch using a run-through wire. Then I did balloon angioplasty of the PDA branch using 2.5 x 12 mm balloon before I deployed 2.75 x 12 mm Xience ANJELICA where the stent was positioned under fluoroscopy guidance and deployed under 14 atmospheres for 20 seconds. The following angiogram showed excellent angiographic results with reduction of stenosis from 99% to 0%. Subsequently I did engage the left main using JL4 guide. After that, I did wire the OM1 of the left circumflex using a run-through wire as well. Balloon angioplasty using 2.5 x 12 mm balloon before I deployed 2.75 x 15 mm Xience ANJELICA where the stent was positioned under fluoroscopy guidance and deployed under 14 atmospheres for 20 seconds. The following angiogram showed excellent angiographic results and the procedure was completed without any complication. POSTPROCEDURE MANAGEMENT: 1. Dual anti-platelet therapy. 2. Risk factor modifications. 3. Follow up with the patient. MMODL / IJN: [id number] /
[2019-05-09] MEDS ORDERED: METOPROLOL TARTRATE 25 MG TAB PO SCH (21:00)
[2019-05-09] MEDS: ATORVASTATIN 80 MG TAB PO SCH (21:06)
[2019-05-10 04:34] LABS: Basophils # (A) 0.1 k/uL (0-0.2); Basophils % (A) 1 %; Eosinophils # (A) 0.2 k/uL (0-0.7); Eosinophils % (A) 3 %; HCT 45.4 % (39.0-53.0); HGB 15.5 gm/dL (13.0-17.5); Lymphocytes # (A) 1.5 k/uL (1.0-4.8); Lymphocytes % (A) 24 %; MCH 30.1 pg (25.0-35.0); MCHC 34.2 g/dL (31.0-37.0); Mean Platelet Volume 6.4; Monocytes # (A) 0.4 k/uL (0-1.0); Monocytes % (A) 6 %; Neutrophils # (A) 4.1 k/uL (1.3-7.7); Neutrophils % (A) 65 %; Platelet Count 240 k/uL (150-450); RBC 5.15 m/uL (4.30-5.90); RDW 12.5 % (11.5-15.5); WBC 6.3 k/uL (3.8-10.6)
[2019-05-10 04:43] LABS: Potassium 4.2 mmol/L (3.5-5.1)
[2019-05-10 04:44] LABS: African American GFR (CKD) >90 (>60 ml/min/1.73 sqM); Anion Gap 7 mmol/L; Blood Urea Nitrogen 10 mg/dL (9-20); Calcium 9.3 mg/dL (8.4-10.2); Carbon Dioxide 25 mmol/L (22-30); Chloride 106 mmol/L (98-107); Glucose 106 mg/dL (74-99); Non-African American GFR(CKD) >90 (>60 ml/min/1.73 sqM); Sodium 138 mmol/L (137-145)
--- NOTE | 2019-05-10 08:52 | P.PN ---
Subjective Progress Note Date: 05/10/19 Principal diagnosis: Acute SC This 48-year-old gentleman was admitted yesterday with symptoms of chest pain and EKG evidence of possible inferior posterior wall myocardial infarction. Cardiac catheterization showed evidence of significant disease involving the PLV branch and PDA of the right coronary artery and also OM branch of the circumflex. Patient had stent placement of the PLV and also PDA branch by Dr. Sharif. Patient has been stable since the procedure. Denies any chest pain or shortness of breath. His blood work is able. His groin is soft without any hematoma. Lungs appeared to be clear. No arrhythmias noted. However, his blood pressure has been running high. Patient is currently on losartan, amlodipine and beta samantha. I'm going to increase the dose of the beta samantha to 50 mg by mouth twice a day. Patient could be transferred to telemetry unit. I'm going to get a repeat EKG and also echocardiogram. We'll also discuss with Dr. Sharif regarding possible stent placement of the OM branch, before discharge Objective - Vital Signs Vital signs: Vital Signs Temp 98.2 F 05/10/19 04:00 Pulse 97 05/10/19 07:00 Resp 25 H 05/10/19 07:00 BP 155/101 05/10/19 07:00 Pulse Ox 93 L 05/10/19 07:00 Intake & Output 05/09/19 05/10/19 05/10/19 18:59 06:59 18:59 Intake Total 165 725 Output Total 0 Balance 165 725 Weight 104.326 kg 104.6 kg Intake: IV 165 525 Sodium Chloride 0.9% 1, 525 000 ml @ 75 mls/hr IV . [id number] [facility] Rx#:[id number] Oral 200 Output: Urine 0 Other: Voiding Method Toilet Urinal # Voids 1 - Exam GENERAL EXAM: Patient is alert and oriented and doesn't appear to be in any acute distress HEENT: Normocephalic. Normal reaction of pupils, equal size, normal range of extraocular motion. No erythema or exudates in the throat. NECK: No masses, no nuchal rigidity. CHEST: No chest wall deformity. LUNGS: [Equal air entry with no crackles or wheeze.] HEART: [S1 and S2 normal with no audible mumurs or gallops. Regular rhythm, fe morals equal on both sides..] ABDOMEN: No hepatosplenomegaly, normal bowel sounds, no guarding or rigidity. SKIN: No rashes CENTRAL NERVOUS SYSTEM: No focal deficits. EXTREMITIES: [No cyanosis, clubbing or edema. PUNCTURE SITE: Soft without any hematoma in the right groin] - Labs CBC & Chem 7: 05/10/19 04:17 05/10/19 04:18 Labs: Abnormal Lab Results - Last 24 Hours (Table) 05/09/19 05/10/19 Range/Units 19:01 04:18 Glucose 106 H (74-99) mg/dL POC Glucose (mg/dL) 131 H (75-99) mg/dL Assessment and Plan (1) Hypertension Current Visit: Yes Status: Acute Code(s): I10 - ESSENTIAL (PRIMARY) HYPERTEN NAN SNOMED Code(s): 29007542 (2) Acute inferior myocardial infarction Current Visit: Yes Status: Acute Code(s): I21.19 - STEMI INVOLVING OTH CORONARY ARTERY OF INFERIOR WALL SNOMED Code(s): 40458663 (3) Lymphoma Current Visit: Yes Status: Acute Code(s): C85.90 - NON-HODGKIN LYMPHOMA, UNSPECIFIED, UNSPECIFIED SITE SNOMED Code(s): 590710943 (4) Smoking Current Visit: Yes Status: Acute Code(s): F17.200 - NICOTINE DEPENDENCE, U NSPECIFIED, UNCOMPLICATED SNOMED Code(s): 48007037 Plan: Patient is clinically stable. Blood pressure running high. I'm going to increase the dose of the beta samantha. Increase activity as tolerated. We'll discuss with Dr. Ortega regarding stent placement of the OM branch. We'll get an echocardiogram and EKG.
[2019-05-10] MEDS: METOPROLOL TARTRATE 50 MG TAB PO SCH ×2 (09:31→20:49)
[2019-05-10] MEDS: ASPIRIN 325 MG TAB PO SCH (09:31)
[2019-05-10] MEDS: LOSARTAN 50 MG TAB PO SCH (09:31)
[2019-05-10] MEDS: amLODIPine 10 MG TAB PO SCH (09:32)
[2019-05-10 13:13] VITALS: BMI 31.2
[2019-05-10] MEDS: CLOPIDOGREL 75 MG TAB PO SCH (13:31)
--- NOTE | 2019-05-10 14:12 | P.HPIM ---
History of Present Illness H&P Date: 05/10/19 Chief Complaint: Chest pain History of presenting complaint: Pleasant 48-year-old patient of Dr. Andrew torrez from [place]. Patient was sitting and watching television. Started developing chest pressure going across the chest. asked him to the hospital wanted to wait off of it. He thought was heartburn. Patient then went down his right arm. Also went to his throat. Patient felt a bit tired and rundown. No dizziness no lightheadedness. No perspiration. Minimal shortness of breath. Patient presented to [facility]. Was given IV heparin and Plavix and Lopressor. EKG there showed ST elevation in inferior leads and depression in the anterior leads. Patient was transferred here, taken to the cardiac laborer electroplating, yesterday evening and patient had stenting done to the PDA branch and obtuse marginal branch. Currently in the ICU. Patient's and in-laws are present. No chest pain. Patient is smoker. Review of systems: GEN.: Tired. EYES: None HEENT: None NECK: None RESPIRATORY: None CARDIOVASCULAR: As above GASTROINTESTINAL: Occasional heartburn] GENITOURINARY: None MUSCULOSKELETAL: None LYMPHATICS: None HEMATOLOGICAL: None PSYCHIATRY: None NEUROLOGICAL: None Past medical history: Non-Hodgkin's lymphoma treated [place] [address] Castaneda in remission, hypertension, occasional GERD Social history: , smokes a pack a day for over 30 years, works at [employer]. Alcohol occasionally. Family history: Patient is adopted Physical examination: VITAL SIGNS: 98.1, 92, 18, 1 85 x 1.5, 95% on 2 L upon presentation GENERAL: BMI 31.3, laying in bed, awake. EYES: Pupils equal. Conjunctiva normal. HEENT: External appearance of nose and ears normal, oral cavity grossly normal. NECK: JVD not raised; masses not palpable. HEART: First and second heart sounds are normal; no edema. LUNGS: Respiratory rate normal; clear to auscultation. ABDOMEN: Soft, nontender, liver spleen not palpable, no masses palpable. PSYCH: Alert and oriented x3; mood and affect normal. NEUROLOGICAL: Cranial nerves grossly intact; no facial asymmetry, power and sensation grossly intact. LYMPHATICS: No lymph nodes palpable in the axilla and neck INVESTIGATIONS, reviewed in the clinical context: White count 6.3 hemoglobin 15.5 platelets 240 potassium 4.2 creatinine 0.81 EKG from [facility] showed ST elevation in inferior leads and depression in the anterior leads Assessment: -Acute ST elevation myocardial infarction of the inferior wall -Emergent cardiac catheterization with stent to the PDA branch of the obtuse marginal branch -Essential hypertension uncontrolled -Chronic nicotine dependence patient cigarette smoker -Obesity BMI 31.3 Plan: Current medications include Norvasc, aspirin, Lipitor, Plavix, Cozaar, hydralazine. Care was discussed the patient and family the bedside. Cardiac catheterization was done by Dr. Alcantar and intervention stents by Dr. Ortega Past Medical History Past Medical History: No Reported History, Hypertension Additional Past Medical History / Comment(s): lymphoma History of Any Multi-Drug Resistant Organisms: None Reported Past Surgical History: No Surgical Hx Reported Past Anesthesia/Blood Transfusion Reactions: No Reported Reaction Past Psychological History: No Psychological Hx Reported Smoking Status: Current every day smoker Past Alcohol Use History: None Reported Past Drug Use History: None Reported Medications and Allergies Home Medications Medication Instructions Recorded Confirmed Type Ibuprofen [Motrin] 800 mg PO TID PRN 05/09/19 05/09/19 History Olmesartan Medoxomil [Benicar] 20 mg PO DAILY 05/09/19 05/09/19 History Sildenafil Citrate [Sildenafil] 20 mg PO ONCE PRN 05/09/19 05/09/19 History amLODIPine [Norvasc] 10 mg PO DAILY 05/09/19 05/09/19 History Allergies Allergy/AdvReac Type Severity Reaction Status Date / Time No Known Allergies Allergy Verified 05/09/19 17:45 Physical Exam Vitals: Vital Signs Temp Pulse Resp BP Pulse Ox 05/10/19 10:00 86 26 H 96 05/10/19 09:00 79 28 H 154/96 94 L 05/10/19 08:00 77 24 164/114 95 05/10/19 07:00 97 25 H 155/101 93 L 05/10/19 06:00 73 13 157/102 94 L 05/10/19 05:00 71 16 149/100 95 05/10/19 04:00 98.2 F 68 12 146/103 94 L 05/10/19 03:00 72 16 156/97 96 05/10/19 02:01 87 26 H 131/85 94 L 05/10/19 01:00 79 10 L 120/80 96 05/10/19 00:34 78 16 120/80 92 L 05/10/19 00:00 97.8 F 70 20 124/81 93 L 05/09/19 23:00 71 19 109/79 95 05/09/19 22:00 75 24 135/81 94 L 05/09/19 21:30 86 17 135/81 95 05/09/19 21:00 81 11 L 146/85 05/09/19 20:30 86 11 L 146/85 95 05/09/19 20:00 98.0 F 85 11 L 150/87 94 L 05/09/19 19:30 75 14 138/83 97 05/09/19 17:11 98.1 F 92 18 185/115 95 Intake and Output 05/09/19 05/10/19 05/10/19 22:59 06:59 14:59 Intake Total 390 500 Output Total 0 0 Balance 390 500 Intake: IV 390 300 Sodium Chloride 0.9% 1, 225 300 000 ml @ 75 mls/hr IV . [id number] [facility] Rx#:[id number] Oral 200 Output: Urine 0 0 Other: Voiding Method Urinal Toilet Urinal # Voids 1 1 1 Weight 104.326 kg 104.6 kg Results CBC & Chem 7: 05/10/19 04:17 05/10/19 04:18 Labs: Abnormal Lab Results - Last 24 Hours (Table) 05/09/19 05/10/19 Range/Units 19:01 04:18 Glucose 106 H (74-99) mg/dL POC Glucose (mg/dL) 131 H (75-99) mg/dL Thrombosis Risk Factor Assmnt - Choose All That Apply Each Factor Represents 1 point: Acute CT, Age 41-60 years Other Risk Factors: No Thrombosis Risk Factor Assessment Total Risk Factor Score: 2 Thrombosis Risk Factor Assessment Level: Low Risk
[2019-05-10] MEDS: NICOTINE 21MG/24HR PATCH TRANSDERM SCH (14:30)
[2019-05-10] MEDS: ATORVASTATIN 80 MG TAB PO SCH (20:49)
--- NOTE | 2019-05-11 07:30 | P.PN ---
Subjective Progress Note Date: 05/11/19 Principal diagnosis: Acute coronary syndrome This is a 48-year-old gentleman with history of hypertension and also history of lymphoma presented to the hospital with chest discomfort and was diagnosed with acute coronary syndrome. An emergent heart catheterization was performed and revealed severe disease involving the right coronary artery as well as first obtuse marginal branch of left circumflex. He underwent successful stenting of both with an excellent angiographic results. On follow-up with him today, May [id number], he remains asymptomatic from a cardiovascular standpoint of view. He denies any chest pain, chest discomfort, shortness of breath, dizziness, or heart racing or fluttering. Hemodynamically he is stable. He is maintaining normal sinus mechanism. The right groin is soft and nontender and without any bruises. An echocardiogram is in process to be performed. He is on dual antiplatelet therapy along with hyperintensity statin as well as anti-ischemic medications. Objective - Vital Signs Vital signs: Vital Signs Temp 97.6 F 05/11/19 04:00 Pulse 87 05/11/19 04:00 Resp 12 05/11/19 04:00 BP 109/88 05/11/19 04:00 Pulse Ox 94 L 05/11/19 04:00 Intake & Output 05/10/19 05/11/19 05/11/19 18:59 06:59 18:59 Output Total 0 0 Balance 0 0 Weight 104.6 kg 102.6 kg Output: Urine 0 0 Other: Voiding Method Toilet Toilet Urinal Urinal # Voids 0 1 - Constitutional General appearance: Present: no acute distress - Respiratory Respiratory: bilateral: CTA - Cardiovascular Rhythm: regular Heart sounds: normal: S1, S2 - Labs CBC & Chem 7: 05/10/19 04:17 05/10/19 04:18 Assessment and Plan Assessment: Assessment #1 acute coronary syndrome #2 status post PCI of the PDA of RCA and OM of LCx #3 hypertension #4 history of lymphoma Plan #1 continue the current medical regimen #2 continue dual antiplatelet therapy along with high intensity statin #3 follow-up echocardiogram #4 the patient Be transferred to the floor #5 possible discharge in the next 24 hours
[2019-05-11] MEDS: ASPIRIN 325 MG TAB PO SCH (07:58)
[2019-05-11] MEDS: CLOPIDOGREL 75 MG TAB PO SCH (07:58)
[2019-05-11] MEDS: METOPROLOL TARTRATE 50 MG TAB PO SCH ×2 (07:58→20:40)
[2019-05-11] MEDS: LOSARTAN 50 MG TAB PO SCH (07:58)
--- NOTE | 2019-05-11 11:01 | ECHOF ---
Referral Reason:STEMI MEASUREMENTS -------- HEIGHT: 182.9 cm WEIGHT: 102.5 kg BP: 109/88 RVIDd: 3.1 cm (< 3.3) IVSd: 1.4 cm (0.6 - 1.1) LVIDd: 4.2 cm (3.9 - 5.3) LVPWd: 1.4 cm (0.6 - 1.1) IVSs: 1.7 cm LVIDs: 3.4 cm LVPWs: 1.6 cm LA Diam: 3.1 cm (2.7 - 3.8) LAESV Index (A-L): 16.81 ml/m Ao Diam: 4.1 cm (2.0 - 3.7) AV Cusp: 2.7 cm (1.5 - 2.6) MV EXCURSION: 10.087 mm (> 18.000) MV EF SLOPE: 60 mm/s (70 - 150) EPSS: 1.1 cm MV E Brad: 0.61 m/s MV DecT: 236 ms MV A Brad: 0.84 m/s MV E/A Ratio: 0.73 FINDINGS -------- Sinus rhythm. This was a technically adequate study. The left ventricular size is normal. There is moderate concentric left ventricular hypertrophy. O verall left ventricular systolic function is normal with, an EF between 60 - 65 %. The diastolic fi lling pattern is normal for the age of the patient 9.42. The right ventricle is normal in size. Normal LA size by volume 22+/-6 ml/m2. The right atrium is normal in size. Aneurysmal Interatrial septum. The aortic valve is bicuspid. The mitral valve is normal. The tricuspid valve appears structurally normal. Trace/mild (physiologic) pulmonic regurgitation. The aortic root is dilated measuring 4.1cm. Normal inferior vena cava with normal inspiratory collapse consistent with estimated right atrial pre ssure of 5 mmHg. There is no pericardial effusion. CONCLUSIONS -------- 1. Sinus rhythm. 2. This was a technically adequate study. 3. The left ventricular size is normal. 4. There is moderate concentric left ventricular hypertrophy. 5. Overall left ventricular systolic function is normal with, an EF between 60 - 65 %. 6. The diastolic filling pattern is normal for the age of the patient 9.42 7. The right ventricle is normal in size. 8. Normal LA size by volume 22+/-6 ml/m2. 9. The right atrium is normal in size. 10. Aneurysmal Interatrial septum. 11. The aortic valve is bicuspid. 12. The mitral valve is normal. 13. The tricuspid valve appears structurally normal. 14. Trace/mild (physiologic) pulmonic regurgitation. 15. The aortic root is dilated measuring 4.1cm. 16. Normal inferior vena cava with normal inspiratory collapse consistent with estimated right atrial pressure of 5 mmHg. 17. There is no pericardial effusion. STOCK RANCH SUPERVISOR: Sofy Anne RDCS
[2019-05-11] MEDS: amLODIPine 10 MG TAB PO SCH (11:03)
[2019-05-11] MEDS: NICOTINE 21MG/24HR PATCH TRANSDERM SCH (13:55)
--- NOTE | 2019-05-11 16:53 | P.PN ---
Progress Note - Text Progress Note Date: 05/11/19 Chief Complaint: Chest pain History of presenting complaint: Pleasant 48-year-old patient of Dr. Andrew torrez from [place]. Patient was sitting and watching television. Started developing chest pressure going across the chest. asked him to the hospital wanted to wait off of it. He thought was heartburn. Patient then went down his right arm. Also went to his throat. Patient felt a bit tired and rundown. No dizziness no lightheadedness. No perspiration. Minimal shortness of breath. Patient presented to [facility]. Was given IV heparin and Plavix and Lopressor. EKG there showed ST elevation in inferior leads and depression in the anterior leads. Patient was transferred here, taken to the cardiac laborer chicken [facility], yesterday evening and patient had stenting done to the PDA branch and obtuse marginal branch. Today-in the ICU. Has been up to the bathroom. No chest pain no shortness of breath. Comfortable. Review of systems: Was done for constitutional, cardiovascular, GI, pulmonary. relevant finding as above Active Medications Al Hydroxide/Mg Hydroxide (Maalox) 30 ml PO Q4HR PRN PRN Reason: Heartburn Amlodipine Besylate (Norvasc) 10 mg PO DAILY [facility] Last Admin: 05/11/19 11:03 Dose: 10 mg Documented by: Aspirin (Aspirin) 325 mg PO DAILY [facility] Last Admin: 05/11/19 07:58 Dose: 325 mg Documented by: Atorvastatin Calcium (Lipitor) 80 mg PO HS [facility] Last Admin: 05/10/19 20:49 Dose: 80 mg Documented by: Atropine Sulfate (Atropine) 0.5 mg IV ONCE PRN PRN Reason: Symptomatic Bradycardia Clopidogrel Bisulfate (Plavix) 75 mg PO DAILY [facility] Last Admin: 05/11/19 07:58 Dose: 75 mg Documented by: Hydralazine HCl (Apresoline) 10 mg IVP Q4HR PRN PRN Reason: Blood Pressure - High Losartan Potassium (Cozaar) 100 mg PO DAILY [facility] Last Admin: 05/11/19 07:58 Dose: 100 mg Documented by: Metoprolol Tartrate (Lopressor) 50 mg PO BID [facility] Last Admin: 05/11/19 07:58 Dose: 50 mg Documented by: Miscellaneous Information (Rx Info: Iv Contrast Was Given) 1 each MISCELLANE DAILY PRN PRN Reason: Per Protocol Stop: 05/11/19 18:42 Nicotine (Habitrol 21mg/24hr Patch) 1 patch TRANSDERM DAILY [facility] Last Admin: 05/11/19 13:55 Dose: 1 patch Documented by: Nitroglycerin (Nitrostat) 0.4 mg SUBLINGUAL Q5M PRN PRN Reason: Chest Pain Zolpidem Tartrate (Ambien) 5 mg PO HS PRN PRN Reason: Insomnia Physical examination: VITAL SIGNS: 98.2, 86, 18, 11 6/68, 93% room air GENERAL: Laying in bed, comfortable. EYES: Pupils equal. Conjunctiva normal. HEENT: External appearance of nose and ears normal, oral cavity grossly normal. NECK: JVD not raised; masses not palpable. HEART: First and second heart sounds are normal; no edema. LUNGS: Respiratory rate normal; clear to auscultation. ABDOMEN: Soft, nontender, liver spleen not palpable, no masses palpable. PSYCH: Alert and oriented x3; mood and affect normal. INVESTIGATIONS, reviewed in the clinical context: White count 6.3 hemoglobin 15.5 platelets 240 potassium 4.2 creatinine 0.81 EKG from [facility] showed ST elevation in inferior leads and depression in the anterior leads 2-D echo-EF 60-65% Assessment: -Acute ST elevation myocardial infarction of the inferior wall -Emergent cardiac catheterization with stent to the PDA branch of the RCA, and OM branch of the left circumflex -Essential hypertension now better controlled -Chronic nicotine dependence patient cigarette smoker -Obesity BMI 31.3 Plan: Doing better. Patient is to be moved out of the ICU. Continue current medication. Encouraged to ambulate in the hallway
[2019-05-11] MEDS: ATORVASTATIN 80 MG TAB PO SCH (20:40)
[2019-05-12 07:59] VITALS: RESP 18; TEMP 97.9
[2019-05-12] MEDS: LOSARTAN 50 MG TAB PO SCH (08:00)
[2019-05-12] MEDS: NICOTINE 21MG/24HR PATCH TRANSDERM SCH (08:00)
[2019-05-12] MEDS: ASPIRIN 325 MG TAB PO SCH (08:00)
[2019-05-12] MEDS: amLODIPine 10 MG TAB PO SCH (08:00)
[2019-05-12] MEDS: METOPROLOL TARTRATE 50 MG TAB PO SCH (08:00)
[2019-05-12] MEDS: CLOPIDOGREL 75 MG TAB PO SCH (08:00)
[2019-05-12 11:31] VITALS: BP 132/82; PULSE 82
--- NOTE | 2019-05-12 15:09 | P.PN ---
Subjective Progress Note Date: 05/12/19 This is a 48-year-old gentleman with known history of hypertension, history of lymphoma who presented to the hospital with an acute myocardial infarction. He was taken to the cardiac catheterization lab emergently and underwent angioplasty and stenting of the RCA and first obtuse marginal branch. Seen and examined this morning, denies any chest pain or difficulty in breathing. Blood pressure 132/80 with a heart rate in the 80s. White blood cell count 6.3, hemoglobin 15.5, platelet count 240. Sodium 138 potassium 4.2, BUN 10, creatinine 0.8. Remaining in normal sinus rhythm, no arrhythmias noted. Objective - Vital Signs Vital signs: Vital Signs Temp 97.9 F 05/12/19 11:29 Pulse 82 05/12/19 11:29 Resp 18 05/12/19 11:29 BP 132/82 05/12/19 11:29 Pulse Ox 95 05/12/19 11:29 Intake & Output 05/11/19 05/12/19 05/12/19 18:59 06:59 18:59 Intake Total 472 360 Output Total 0 Balance 472 360 Weight 101.7 kg Intake: Oral 472 360 Output: Urine 0 Other: Voiding Method Toilet Urinal # Voids 1 2 - Exam PHYSICAL EXAMINATION: GENERAL: 48-year-old gentleman in no acute distress at the time of my examination HEENT: Head is atraumatic, normocephalic. Pupils equal, round. Sclera anicteric. Conjunctiva are clear. Mucous membranes of the mouth are moist. Neck is supple. There is no elevated jugular venous pressure.No carotid bruit is heard. HEART EXAMINATION: Heart S1, S2 normal. No murmur or gallop heard. CHEST EXAMINATION: Lungs are clear to auscultation and precussion. No chest wall tenderness is noted on palpation or with deep breathing. ABDOMEN: Soft, nontender. Bowel sounds are heard. No organomegaly noted. EXTREMITIES: 2+ peripheral pulses with no evidence of peripheral edema and no calf tenderness noted. NEUROLOGIC patient is awake, alert and oriented X3. . - Labs CBC & Chem 7: 05/10/19 04:17 05/10/19 04:18 Assessment and Plan Plan: Assessment and plan #1 acute coronary syndrome, status post PCI of the PDA of the RCA and OM of the circumflex #2 hypertension 3 hyperlipidemia #4 history of lymphoma Plan From cardiology's perspective, patient may be able to be discharged home today. We'll make him a follow-up appointment to see Dr. Kern in the office in one week. DNP note has been reviewed, I agree with a documented findings and plan of care. Patient was seen and examined.
--- NOTE | 2019-05-12 23:40 | P.DS ---
Providers Date of admission: 05/09/19 17:55 Expected date of discharge: 05/12/19 Attending physician: David Greene Consults: 05/09/19 18:42 Consult Physician Routine Consulting Provider: [facility] Consult Reason/Comments: Post Interventional patient Do you want consulting provider notified?: Already Contacted Primary care physician: Ten Burgos [place] Hospital Course: Chief Complaint: Chest pain Hospital course: Pleasant 48-year-old patient of Dr. Andrew burgos from [place]. Patient was sitting and watching television. Started developing chest pressure going across the chest. asked him to the hospital wanted to wait . He thought was heartburn. pain then went down his right arm. Also went to his throat. Patient felt a bit tired and rundown. No dizziness no lightheadedness. No perspiration. Minimal shortness of breath. Patient presented to [facility]. Was given IV heparin and Plavix and Lopressor. EKG there showed ST elevation in inferior leads and depression in the anterior leads. Patient was transferred here, taken to the cardiac laborer pole crew, and patient had stenting done to the PDA branch and obtuse marginal branch. patient has done well. No open about. No cardiac symptoms. Today care was discussed with the patient and his mother in-law. Questions were answered Consultants: Dr. 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 EYES: Pupils equal. Conjunctiva normal. HEENT: External appearance of nose and ears normal, oral cavity grossly normal. NECK: JVD not raised; masses not palpable. HEART: First and second heart sounds are normal; no edema. LUNGS: Respiratory rate normal; clear to auscultation. ABDOMEN: Soft, nontender, liver spleen not palpable, no masses palpable. PSYCH: Alert and oriented x3; mood and affect normal. INVESTIGATIONS, reviewed in the clinical context: White count 6.3 hemoglobin 15.5 platelets 240 potassium 4.2 creatinine 0.81 EKG from [facility] showed ST elevation in inferior leads and depression in the anterior leads 2-D echo-EF 60-65% Assessment: -Acute ST elevation myocardial infarction of the inferior wall -Emergent cardiac catheterization with stent to the PDA branch of the RCA, and OM branch of the left circumflex -Essential hypertension now better controlled -Chronic nicotine dependence patient cigarette smoker -Obesity BMI 31.3 disposition: Home Patient Condition at Discharge: Stable Plan - Discharge Summary Discharge Rx Participant: No New Discharge Prescriptions: New Aspirin 81 mg PO DAILY chew Nicotine 21Mg/24Hr Patch [Habitrol] 1 patch TRANSDERM DAILY #14 patch Atorvastatin [Lipitor] 80 mg PO HS #30 tab Metoprolol Tartrate [Lopressor] 50 mg PO BID #60 tab Nitroglycerin Sl Tabs [Nitrostat] 0.4 mg SUBLINGUAL Q5M PRN #25 tab PRN Reason: Chest Pain Clopidogrel [Plavix] 75 mg PO DAILY #30 tab Continue amLODIPine [Norvasc] 10 mg PO DAILY Olmesartan Medoxomil [Benicar] 20 mg PO DAILY Discontinued Sildenafil Citrate [Sildenafil] 20 mg PO ONCE PRN PRN Reason: E.D. Ibuprofen [Motrin] 800 mg PO TID PRN PRN Reason: Pain Discharge Medication List Olmesartan Medoxomil [Benicar] 20 mg PO DAILY 05/09/19 [History] amLODIPine [Norvasc] 10 mg PO DAILY 05/09/19 [History] Aspirin 81 mg PO DAILY chew 05/12/19 [Rx] Atorvastatin [Lipitor] 80 mg PO HS #30 tab 05/12/19 [Rx] Clopidogrel [Plavix] 75 mg PO DAILY #30 tab 05/12/19 [Rx] Metoprolol Tartrate [Lopressor] 50 mg PO BID #60 tab 05/12/19 [Rx] Nicotine 21Mg/24Hr Patch [Habitrol] 1 patch TRANSDERM DAILY #14 patch 05/12/19 [Rx] Nitroglycerin Sl Tabs [Nitrostat] 0.4 mg SUBLINGUAL Q5M PRN #25 tab 05/12/19 [Rx] Follow up Appointment(s)/Referral(s): Ten Burgos MD [Primary Care Provider] - 05/15/19 1:15 pm (Saturday) Lizy Kern MD [STAFF PHYSICIAN] - 05/18/19 8:45 am (Saturday) Patient Instructions/Handouts: *Surgery [facility] - After Heart Catheterization - Planning Supervisor Instructions, Left Heart Catheterization (DC) Discharge Disposition: HOME SELF-CARE
[2019-05-13] MEDS ORDERED: ASPIRIN 81 MG PO SCH (09:00)
== END 2019-05-12 15:32 | disposition home or self-care (01) | DRG 247 ==
LOC: EC 17:11 → 2SICU 17:55 → 3SCARD 05-11 11:53
PROVIDERS: ADMIT Hospitalist; ATTEND Hospitalist
PROC: 027135Z Dilation of Coronary Artery, Two Arteries with Two Drug-eluting Intraluminal Devices, Percutaneous Approach (ICD-10-PCS; principal; 2019-05-09 17:12)
PROC: B2111ZZ Fluoroscopy of Multiple Coronary Arteries using Low Osmolar Contrast (ICD-10-PCS; 2019-05-09 17:12)
PROC: 4A023N7 Measurement of Cardiac Sampling and Pressure, Left Heart, Percutaneous Approach (ICD-10-PCS; 2019-05-09 17:12)
DX: I21.19 ST elevation (STEMI) myocardial infarction involving other coronary artery of inferior wall (principal); C85.90 Non-Hodgkin lymphoma, unspecified, unspecified site; E66.9 Obesity, unspecified; E78.5 Hyperlipidemia, unspecified; F17.210 Nicotine dependence, cigarettes, uncomplicated; I10 Essential (primary) hypertension; Z68.31 Body mass index [BMI] 31.0-31.9, adult; Z79.82 Long term (current) use of aspirin; Z79.899 Other long term (current) drug therapy
CPT/HCPCS: 80048; 85025; 93005; 93306; 99285; C1874

== ENCOUNTER → 2019-08-24 | Outpatient (CLI) | payer OTHER, BC ==
--- NOTE | 2019-08-24 11:02 | CT ---
EXAMINATION TYPE: CT ChestAbdPelvis w con DATE OF EXAM: 08/24/2019 COMPARISON: CT chest abdomen and pelvis March 16, 2019 and older CTs through August 13, 2016. P rior PET/CT December 01, 2016 HISTORY: follow up lymphoma CT DLP: 1320.3 mGycm. Automated Exposure Control for Dose Reduction was Utilized. CONTRAST: CT scan of the thorax, abdomen and pelvis is performed with oral and with IV Contrast, patient inject ed with 100 mL of Isovue 300. FINDINGS: LUNGS: The lungs are grossly clear, there is no concerning parenchymal mass or nodule identified. T here is no pleural effusion or pneumothorax seen. The tracheobronchial tree is patent. Nodular low d ensity pleural thickening measuring 1.6 x 1.0 cm axial image 35 not significantly changed from most r ecent CT. MEDIASTINUM: There are no new greater than 1 cm hilar or mediastinal lymph nodes. No cardiomegaly or pericardial effusion is seen. Coronary artery calcifications present most prominent in the first rakesh gonal branch axial images 38 and 39 which is noted Underlying coronary artery disease. OTHER: Stable right internal jugular Mediport catheter. LIVER/GB: Nearly 1 cm low dense lesion right pelvic lobe axial image 72 unchanged from prior studies. No new concerning hypodense liver lesions. PANCREAS: No significant abnormality is seen. SPLEEN: No significant abnormality is seen. ADRENALS: No significant abnormality is seen. KIDNEYS: Occasional simple appearing thin-walled cysts scattered throughout the left kidney seen best on delayed images. BOWEL: Oral contrast reaches level of the mid transverse colon no suspicious small or large bowel dil atation. Normal contrast-filled appendix from cecum. GENITAL ORGANS: Heterogeneous enlarged prostate gland consistent with BPH. LYMPH NODES: No new greater than 1cm abdominal or pelvic lymph nodes are appreciated. Slightly promin ent iliac chain and groin lymph nodes bilaterally are all subcentimeter in short axis without enlarge ment from most recent CT OSSEOUS STRUCTURES: Spine is straightened on sagittal images. Tiny sclerotic focus left hip is in radha ign bone island redemonstrated coronal image 48. OTHER: No significant additional abnormality is seen. IMPRESSION: No new or enlarging mass or adenopathy to suggest recurrent active lymphoma.
== END | disposition home or self-care (01) ==
LOC: RADCTMAIN 08:46
PROVIDERS: ATTEND Internal Medicine Hematology & Oncology
DX: C81.98 Hodgkin lymphoma, unspecified, lymph nodes of multiple sites (principal)
CPT/HCPCS: 71260; 74177; Q9967

== ENCOUNTER → 2020-03-18 | Outpatient (CLI) | payer OTHER, BC ==
--- NOTE | 2020-03-21 09:11 | CT ---
EXAMINATION TYPE: CT ChestAbdPelvis w con DATE OF EXAM: 03/18/2020 COMPARISON: CT chest abdomen and pelvis August 24, 2019 and older studies. PET/CT December 01, 2016 HISTORY: Follow up scan. Non-Hodgkin lymphoma completed chemotherapy November 2016. Originally diagnosed left neck and throughout chest 2017. Iliac chain involvement at time of diagnosis. CT DLP: 1544.2 mGycm. Automated Exposure Control for Dose Reduction was Utilized. CONTRAST: CT scan of the thorax, abdomen and pelvis is performed with oral and with IV Contrast, patient inject ed with 100 mL of Isovue 300. FINDINGS: LUNGS: The lungs remain grossly clear, there is no concerning parenchymal mass or nodule identified. There is no new pleural effusion or pneumothorax seen. The tracheobronchial tree remains patent. A ccounting for technical differences fairly stable 1.9 x 1.2 cm curvilinear density axial image 35 jus t above the SVC right atrial confluence at site of prior neoplasm. MEDIASTINUM: There are no new greater than 1 cm hilar or mediastinal lymph nodes. No cardiomegaly o r pericardial effusion is seen. Some coronary artery calcification redemonstrated. OTHER: Stable right internal jugular Mediport catheter. LIVER/GB: Stable near 1.0 cm low dense lesion right hepatic lobe posterior segment on image 69. PANCREAS: No significant abnormality is seen. SPLEEN: No significant abnormality is seen. ADRENALS: No significant abnormality is seen. KIDNEYS: Symmetric cortical uptake and excretion without hydronephrosis. BOWEL:. The oral contrast reaches level of the hepatic flexure. No suspicious small or large bowel di latation. Normal-appearing appendix from base of cecum in the right upper pelvis. GENITAL ORGANS: Heterogeneous enlarged prostate gland bulging on the bladder base. LYMPH NODES: No new greater than 1cm abdominal or pelvic lymph nodes are appreciated. Stable prominen t but subcentimeter bilateral groin lymph nodes and right sided iliac chain lymph nodes. For referenc e 1.4 x 0.9 cm lymph node noted axial image 117 unchanged from prior OSSEOUS STRUCTURES: Tiny sclerotic focus left hip coronal image 58 stable presumed benign bone island . OTHER: No significant additional abnormality is seen. IMPRESSION: No suspicious new mass or adenopathy to suggest active lymphoma recurrence.
== END | disposition home or self-care (01) ==
LOC: RADCTMAIN 15:13
PROVIDERS: ATTEND Internal Medicine Hematology & Oncology
DX: C81.98 Hodgkin lymphoma, unspecified, lymph nodes of multiple sites (principal)
CPT/HCPCS: 71260; 74177; Q9967

== ENCOUNTER → 2020-09-22 | Outpatient (CLI) | payer OTHER ==
--- NOTE | 2020-09-22 10:14 | CT ---
EXAMINATION TYPE: CT ChestAbdPelvis w con DATE OF EXAM: 09/22/2020 COMPARISON: 03/18/2020 HISTORY: Lymphoma, follow up CT DLP: 1961 mGycm CONTRAST: CT scan of the chest, abdomen and pelvis is performed with Oral Contrast and with IV Contrast, patien t injected with 100 mL of Isovue 300. CT Chest: LUNGS: The lungs are clear and free of infiltrate or atelectasis. Linear parenchymal scar right middl e lobe. No pulmonary nodule or mass is detected. No pleural effusion or CT evidence of interstitial lung disease. MEDIASTINUM: Thoracic aorta is of normal caliber. The heart is not enlarged. No evidence for media stinal mass or adenopathy. HILAR STRUCTURES: No evidence for mass. No hilar adenopathy is appreciated. OTHER: No significant abnormality. CONTRAST CT ABDOMEN AND PELVIS FINDINGS: LIVER/GB: No calcified gallstones. Stable tiny hepatic cysts. Biliary tree is of normal caliber. PANCREAS: No inflammation. No distinct mass. SPLEEN: No splenic enlargement. No lesion seen. ADRENALS: No nodule. No thickening. KIDNEYS/BLADDER: No hydronephrosis. No nephrolithiasis. No distinct renal mass. BOWEL: Normal appendix. Normal bowel caliber. No inflammation. GENITAL ORGANS: Prostate gland enlargement. LYMPH NODES: No greater than 1cm abdominal or pelvic lymph nodes are appreciated. AORTA: No significant abnormality. OSSEOUS STRUCTURES: No significant abnormality is seen. OTHER: No significant additional abnormality is seen. IMPRESSION: 1. No evidence for adenopathy.
== END | disposition home or self-care (01) ==
LOC: RADCTMAIN 07:56
PROVIDERS: ATTEND Internal Medicine Hematology & Oncology
DX: C81.98 Hodgkin lymphoma, unspecified, lymph nodes of multiple sites (principal)
CPT/HCPCS: 71260; 74177; Q9967 ×2

== ENCOUNTER → 2021-04-17 | Outpatient (CLI) | payer OTHER ==
--- NOTE | 2021-04-17 22:21 | CT ---
EXAMINATION TYPE: CT ChestAbdPelvis w con DATE OF EXAM: 04/17/2021 INDICATION: Hodgkin's Lymphoma COMPARISON: 09/22/2020 CT DLP: 1483.00 mGycm CONTRAST: Performed with Oral Contrast and with IV Contrast, patient injected with 100 mL of Isovue 300. TECHNIQUE: Axial images at 5 mm thick sections. Reconstructed images in the coronal plane. Delayed images through the kidneys. FINDINGS: CT CHEST: Portion of the thyroid visualized is normal. No suspicious lung nodules or focal infiltrates are present. No enlarged mediastinal or hilar adenopathy is evident. There is a 0.7 cm lymph node within the right axillary region. Smaller bilateral axillary lymphadenopathy is noted. The ascending aorta diameter at the level of the main pulmonary artery is 2.9 cm. The main pulmonary artery diameter at the bifurcation is 2.[address] ABDOMEN: No retrocrural adenopathy noted Liver: There is a 0.9 cm cyst within the inferior right lobe liver. Spleen: Normal Pancreas: Normal Adrenal glands: The adrenal glands are normal. Gallbladder: Normal Kidneys: No masses are evident. No hydronephrosis is present. No cysts are present. Delayed images were obtained through the kidneys, which remain unremarkable. Aorta: Vascular calcification is within the aorta. Inferior vena cava: Normal. CT PELVIS: Loops of bowel within the abdomen and pelvis are normal. There are loops of bowel which are incom pletely distended or lack oral contrast limiting their evaluation. Appendix: Normal as visualized. Urinary bladder: Normal. Genitourinary structures: Prostate is unremarkable Osseous structures: No suspicious lytic or sclerotic lesions. Adenopathy: There is a 1.2 cm lymph node in the left inguinal region. Some shotty bilateral inguinal lymphadenopathy is present. This appears stable from comparison. IMPRESSIONS: 1. There is a 1.2 cm lymph node which is stable in the left inguinal region. Additional shotty lympha denopathy discussed above appears Stable. No new or enlarged lymphadenopathy is noted.
== END | disposition home or self-care (01) ==
LOC: RADCTMAIN 09:56
PROVIDERS: ATTEND Internal Medicine Hematology & Oncology
DX: C81.98 Hodgkin lymphoma, unspecified, lymph nodes of multiple sites (principal)
CPT/HCPCS: 71260; 74177; Q9967 ×2

== ENCOUNTER → 2021-10-23 | Outpatient (CLI) | payer OTHER ==
--- NOTE | 2021-10-23 16:40 | CT ---
EXAMINATION TYPE: CT ChestAbdPelvis w con DATE OF EXAM: 10/23/2021 COMPARISON: CT 04/17/2021 HISTORY: Hodgkin's Lymphoma CT DLP: 1965 mGycm Automated exposure control for dose reduction was used. CONTRAST: CT scan of the chest, abdomen and pelvis is performed with Oral Contrast and with IV Contrast, patien t injected with 100 mL of Isovue 300. FINDINGS: LUNGS: The lungs are grossly clear, there is no concerning parenchymal mass or nodule identified. T here is no pleural effusion or pneumothorax seen. The tracheobronchial tree is patent. MEDIASTINUM: There are no greater than 1 cm hilar or mediastinal lymph nodes. No pericardial effusi on is seen. AORTA: No significant abnormality is seen. OTHER: No additional significant abnormality is seen. LIVER/GB: No significant change is appreciated. PANCREAS: No significant abnormality is seen. SPLEEN: No significant abnormality is seen. ADRENALS: No significant abnormality is seen. KIDNEYS: No significant change is seen, hypodense focus at the midpole the left kidney is again noted , kidneys excrete symmetrically, there is no evident renal stone. REPRODUCTIVE ORGANS: Prostate is enlarged and shows associated calcifications. BOWEL: No significant abnormality is seen. FREE AIR: No Free Air visible. ASCITES: None seen. RETROPERITONEAL ADENOPATHY: No retroperitoneal adenopathy is seen. LYMPH NODES: No greater than 1 cm abdominal or pelvic lymph nodes are appreciated. URINARY BLADDER: No significant abnormality is seen. PELVIC ADENOPATHY: None visualized. OSSEOUS STRUCTURES: Bilateral spondylolysis present at L5, minimal anterolisthesis grade 1 L5-S1. IMPRESSION: No essentially stable exam, no evident recurrence
== END | disposition home or self-care (01) ==
LOC: RADCTMAIN 13:37
PROVIDERS: ATTEND Internal Medicine Hematology & Oncology
DX: C81.98 Hodgkin lymphoma, unspecified, lymph nodes of multiple sites (principal)
CPT/HCPCS: 71260; 74177

== ENCOUNTER → 2022-04-25 | Outpatient (CLI) | payer OTHER ==
[2022-04-25 11:35] LABS: African American GFR (CKD) >90 (>60 ml/min/1.73 sqM); Blood Urea Nitrogen 12 mg/dL (9-20); Non-African American GFR(CKD) >90 (>60 ml/min/1.73 sqM)
--- NOTE | 2022-04-25 12:15 | CT ---
EXAMINATION TYPE: CT ChestAbdPelvis w con DATE OF EXAM: 04/25/2022 COMPARISON: 10/23/21 HISTORY: History of Hodgkin lymphoma, five years ago CT DLP: 1534.3 mGycm CONTRAST: CT scan of the chest, abdomen and pelvis is performed with Oral Contrast and with IV Contrast, patien t injected with 70 mL of Isovue 300. CT Chest: LUNGS: The lungs are clear and free of infiltrate or atelectasis. No pulmonary nodule or mass is det ected. No pleural effusion or CT evidence of interstitial lung disease. MEDIASTINUM: Thoracic aorta is of normal caliber. The heart is not enlarged. No evidence for media stinal mass or adenopathy. HILAR STRUCTURES: No evidence for mass. No hilar adenopathy is appreciated. OTHER: No significant abnormality. CONTRAST CT ABDOMEN AND PELVIS FINDINGS: LIVER/GB: No calcified gallstones. Hepatic Cyst is stable. Biliary tree is of normal caliber. PANCREAS: No inflammation. No distinct mass. SPLEEN: No splenic enlargement. No lesion seen. ADRENALS: No nodule. No thickening. KIDNEYS/BLADDER: No hydronephrosis. No nephrolithiasis. No disctinct renal mass. BOWEL: Normal appendix. Normal bowel caliber. No inflammation. GENITAL ORGANS: No gross abnormality. LYMPH NODES: No greater than 1cm abdominal or pelvic lymph nodes are appreciated. AORTA: No significant abnormality. OSSEOUS STRUCTURES: No significant abnormality is seen. OTHER: No significant additional abnormality is seen. IMPRESSION: 1. No evidence for adenopathy at this time. Overall stable study.
== END | disposition home or self-care (01) ==
LOC: RADCTMAIN 10:16
PROVIDERS: ATTEND Internal Medicine Hematology & Oncology
DX: C81.98 Hodgkin lymphoma, unspecified, lymph nodes of multiple sites (principal)
CPT/HCPCS: 82565; 84520; 71260; 74177; 36415; Q9967 ×2